=== PATIENT | male | born 1965 | race Caucasian/White ===

== ENCOUNTER → 2023-10-31 | Outpatient (CLI) | payer OTHER ==
[~2023-10-31] MED LIST: GADOTERATE MEGLUMINE 10 MMOL/20 ML VIAL IV ONE
== END | disposition home or self-care (01) ==
LOC: RAH 15:04
PROVIDERS: ATTEND Internal Medicine Gastroenterology
DX: K76.0 Fatty (change of) liver, not elsewhere classified (principal); R77.2 Abnormality of alphafetoprotein
CPT/HCPCS: 74183; A9575

== ENCOUNTER 2024-04-26 05:49 | Day surgery (SDC) | payer OTHER ==
[2024-04-23 13:23] LABS: BASOPHILS # (AUTO) 0.07 K/uL (0.00-0.20); EOSINOPHILS # (AUTO) 0.29 K/uL (0.00-0.70); HEMATOCRIT 49.3 % (42-54); IMMATURE GRANULOCYTE ABSOLUTE 0.02 K/uL (0-1); LYMPHOCYTES # (AUTO) 2.1 K/uL (1.0-4.8); LYMPHOCYTES % (AUTO) 29.3 % (21.0-51.0); MEAN CORPUSCULAR HEMOGLOBIN 30.3 pg (27.0-33.0); MEAN CORPUSCULAR HGB CONC 33.9 g/dL (32.0-36.0); MEAN CORPUSCULAR VOLUME 89.3 fL (79-99); MONOCYTES # (AUTO) 0.8 K/uL (0.1-1.0); NEUTROPHILS # (AUTO) 3.9 K/uL (1.8-7.7); NEUTROPHILS % (AUTO) 54.4 % (40.0-77.0); PLATELET COUNT (AUTO) 230 K/uL (130-400); RED BLOOD CELL COUNT(AUTO) 5.52 MIL/uL (4.50-6.20); RED CELL DISTRIBUTION WIDTH 13.7 % (11.0-15.5); WHITE BLOOD COUNT (AUTO) 7.2 K/uL (4.8-10.8)
[2024-04-23 13:27] VITALS: BP 152/83; PULSE 58; RESP 18; TEMP 98.1
[2024-04-23 13:35] LABS: INR 1.03 (0.85-1.15); POTASSIUM 3.8 mmol/L (3.5-5.1); PROTHROMBIN TIME 11.1 SEC (9.6-11.6)
[2024-04-23 13:36] LABS: PARTIAL THROMBOPLASTIN TIME 27.9 SEC (26.3-35.5)
[2024-04-23 14:04] LABS: B-TYPE NATRIURETIC PEPTIDE 20 pg/mL (0-100)
--- NOTE | 2024-04-23 15:39 | EKG ---
[facility] Test Date: 2024-04-23 Test Time: 14:07:59 Pat Name: SANTIAGO SOTO Department: [facility] Room: Gender: M Gin Clerk: [id number] : 1965 Requested By: JENNA STEPHENSON Order Number: [id number] Reading MD: Mathew Long Measurements Intervals Boaz Rate: 63 P: 50 SC: 173 QRS: 5 QRSD: 152 T: -41 QT: 460 QTc: 471 Interpretive Statements Sinus rhythm Right bundle branch block Borderline ST depression, lateral leads No previous ECG available for comparison Electronically Signed On 04-25-2024 18:32:53 [employer] by Mathew Long Please click the below link to view image of tracing.
--- NOTE | 2024-04-23 17:07 | HMCIMG ---
CHEST 1VW HISTORY: Preop COMPARISON: None FINDINGS: A frontal projection of the chest was obtained. No acute pulmonary infiltrates is seen. The heart is normal in size. Prominent interstitial markings are seen. No evidence of aortic calcification is seen. IMPRESSION: 1. No acute pulmonary infiltrate is seen.
[2024-04-26] VITALS (10 sets, daily range): BP systolic 114–218; BP diastolic 56–99; PULSE 61–70; RESP 13–16; TEMP 97.9–98.1
[~2024-04-26] VITALS: Ht 175.3 cm; Wt 132.7 kg
[~2024-04-26 05:49] MED LIST changes: +ASPI-1197 PO; +EMPA25TA PO; +EZET10TA48 PO; +FAMO40TA7 PO; -GADOTERATE MEGLUMINE 10 MMOL/20 ML VIAL IV ONE; +HYDR25TA67 PO; +HYDR50TA PO; +METF-446 PO; +NAPR-1023 PO; +NEBI20TA4 PO; +PANT40TA54 PO; +POTA20LI52 PO; +PRAS10TA6 PO; +VALS160T29 PO
[2024-04-26] MEDS ORDERED: VERAPAMIL HCL 2.5 MG/ML VIAL ONE (07:16)
[2024-04-26] MEDS ORDERED: LIDOCAINE HCL 400MG/20ML VIAL ONE (07:16)
[2024-04-26] MEDS ORDERED: IOHEXOL 350 MG/ML 100ML INFUS..BTL IV ONE (07:16)
[2024-04-26] MEDS ORDERED: NITROGLYCERIN 50MG VIAL ONE (07:17)
[2024-04-26] MEDS ORDERED: HEParin 10,000 UNIT/10ML (1,000 UNIT/ML) VIAL ONE (07:17)
[2024-04-26] MEDS ORDERED: HEParin-NS 1,000 UNIT/500 ML 1,000 ML IV ONE (07:17)
[2024-04-26] MEDS ORDERED: MIDAZOLAM HCL 1 MG/ML 2ML VIAL ONE (08:03)
[2024-04-26] MEDS ORDERED: FENTanyl CITRate PF 50 MCG/1 ML 2ML VIAL ONE (08:03)
[2024-04-26] MEDS ORDERED: hydrALAZine 20MG/ML VIAL ONE (08:09)
[2024-04-26] MEDS ORDERED: IOHEXOL-350 50ML VIAL IV ONE (08:44)
[2024-04-26] MEDS ORDERED: DEXTROSE 50%-WATER 50 ML DISP.SYRIN IV PRN (09:00)
[2024-04-26] MEDS ORDERED: 0.9%NACL 1000ML 1,000 ML IV SCH (09:00)
[2024-04-26] MEDS ORDERED: GLUCAGON 1MG KIT 1 MG ML IM PRN (09:00)
[2024-04-26] MEDS: 0.9%NACL 1000ML 1,000 ML IV ONE (09:09)
--- NOTE | 2024-04-26 11:26 | NUR ---
VAS BAND REMOVED SITE ASYMPTOMATIC SITE DRESSED WITH STERILE GAUZE TEGADERM APPLIED TO SITE.
[2024-04-26] MEDS ORDERED: INSULIN humuLIN R 100 UNIT/ML 3ML SQ SCH (11:30)
[2024-04-26] MEDS ORDERED: METO-409 PO (11:35)
[2024-04-26] MEDS ORDERED: ISOS30TA92 PO (11:39)
--- NOTE | 2024-05-03 18:02 | CCATH ---
PROCEDURE PERFORMED: * Left heart catheterization with selective coronary artery angiography. * Left ventriculography. INDICATION: This is a 58-year-old gentleman with multiple risk factors for coronary artery disease and noninvasive evidence of coronary artery disease. He also has a history of mild coronary artery disease documented by multiple methods. He is now presenting with chest discomfort. He is being brought at this time for further evaluation. DESCRIPTION OF PROCEDURE: After informed consent was obtained as above, he was prepped and draped in the usual fashion. Entry into the right radial artery was made under ultrasound guidance, a catheter was placed. Cineangiography of the right and left coronary arteries was carried out without difficulty. Left ventriculography was also done without difficulty with a pigtail catheter. FINDINGS: He was found to have a proximal mid LAD of about 50-60% with good flow beyond the stenosis. The remainder of the vessel was relatively small, but good flow was noted. He has mildly diffusely diseased of diagonal which did not have clinically significant stenosis. Circumflex was without significant coronary disease. The obtuse marginals were tortuous, but no significant epicardial disease. Right coronary artery is big and codominant, has a patent PDA. Left ventricular function showed an ejection fraction of 60% after injection of contrast. ASSESSMENT: Mild coronary artery disease of proximal part of the mid left anterior descending. He will be treated medically. There were no complications. TID: [id number] RECEIPT: [id number]
== END 2024-04-26 12:40 | disposition home or self-care (01) ==
LOC: DAH 05:49
PROVIDERS: ATTEND Internal Medicine Interventional Cardiology
DX: I25.118 Atherosclerotic heart disease of native coronary artery with other forms of angina pectoris (principal); R06.09 Other forms of dyspnea; I45.10 Unspecified right bundle-branch block; E11.43 Type 2 diabetes mellitus with diabetic autonomic (poly)neuropathy; E66.01 Morbid (severe) obesity due to excess calories; E11.51 Type 2 diabetes mellitus with diabetic peripheral angiopathy without gangrene; I10 Essential (primary) hypertension; E78.2 Mixed hyperlipidemia; R00.2 Palpitations; Z79.84 Long term (current) use of oral hypoglycemic drugs; Z95.5 Presence of coronary angioplasty implant and graft; Z86.73 Personal history of transient ischemic attack (TIA), and cerebral infarction without residual deficits; Z79.01 Long term (current) use of anticoagulants; Z79.899 Other long term (current) drug therapy
CPT/HCPCS: 80048; 83880; 85025; 85610; 85730; 36415; 71045; 93005; 93458; 82948; C1769 ×2; C1894; A4649; J3010; J3490 ×3; J7030; J0360; J1644 ×2; J2250; Q9967 ×2; A4215; A6402; A4222; A4221; A4663; A4216; A6206; A4606; Q9965 ×2; A4223 ×3; 99156; 99157